=== PATIENT | female | born 1980 | race Caucasian/White ===

== ENCOUNTER 2019-01-07 10:00 | Emergency (ER) | payer MEDICARE, MEDICAID ==
[~2019-01-07] VITALS: Ht 175.3 cm; Wt 61.2 kg
[2019-01-07] MEDS ORDERED: NS IV 1000 ML 1,000 ML IV ONE (10:05)
[2019-01-07 10:48] LABS: BASOPHILS # (AUTO) 0.1 10^3/uL (0.0-0.1); BASOPHILS % (AUTO) 1 % (0-10); EOSINOPHILS # (AUTO) 0.2 10^3/uL (0.0-0.3); EOSINOPHILS % (AUTO) 3 % (0-10); HEMATOCRIT 38 % (35-52); HEMOGLOBIN 12.5 G/DL (11.5-16.0); LYMPHOCYTES % (AUTO) 26 % (12-44); MEAN CORPUSCULAR HEMOGLOBIN 29 PG (25-34); MEAN CORPUSCULAR HGB CONC 33 G/DL (32-36); MEAN CORPUSCULAR VOLUME 89 FL (80-99); MEAN PLATELET VOLUME 9.8 FL (7.4-10.4); MONOCYTES # (AUTO) 0.9 X 10^3 (0.0-1.0); MONOCYTES % (AUTO) 12 % (0-12); NEUTROPHILS # (AUTO) 4.5 X 10^3 (1.8-7.8); NEUTROPHILS % (AUTO) 59 % (42-75); PLATELET COUNT 315 10^3/uL (130-400); WHITE BLOOD COUNT 7.7 10^3/uL (4.3-11.0)
[2019-01-07 11:15] LABS: ALANINE AMINOTRANSFERASE 21 U/L (0-55); ALBUMIN 4.1 GM/DL (3.2-4.5); ALKALINE PHOSPHATASE 62 U/L (40-136); BILIRUBIN,TOTAL 0.4 MG/DL (0.1-1.0); BUN/CREATININE RATIO 23; CALCIUM 9.5 MG/DL (8.5-10.1); CARBON DIOXIDE 24 MMOL/L (21-32); CHLORIDE 101 MMOL/L (98-107); CREATININE SERUM 0.91 MG/DL (0.60-1.30); GFR ESTIMATED > 60; GLUCOSE 78 MG/DL (70-105); POTASSIUM 3.7 MMOL/L (3.6-5.0); SALICYLATE < 5.0 MG/DL (5.0-20.0); SODIUM 136 MMOL/L (135-145); TOTAL PROTEIN 6.9 GM/DL (6.4-8.2)
[2019-01-07 11:31] LABS: BILIRUBIN,URINE NEGATIVE (NEGATIVE); CLARITY,URINE SLIGHTLY CLOUDY; COLOR,URINE YELLOW; GLUCOSE, URINE (UA) NEGATIVE (NEGATIVE); KETONES,URINE 1+ (NEGATIVE); LEUKOCYTE ESTERASE ,URINE 1+ (NEGATIVE); NITRITE,URINE NEGATIVE (NEGATIVE); PH,URINE 6 (5-9); PROTEIN,URINE 1+ (NEGATIVE); UROBILINOGEN,URINE NORMAL (NORMAL)
[2019-01-07 11:32] LABS: ACETAMINOPHEN < 10 UG/ML (10-30)
[2019-01-07 11:37] LABS: HCG,QUALITATIVE URINE NEGATIVE (NEGATIVE)
--- NOTE | 2019-01-07 11:42 | ED General ---
General Chief Complaint: Psych/Social Disorder Stated Complaint: DRUG ABUSE Source of Information: Patient Exam Limitations: Other (psychosis) (NAVIN RIOJAS MEDICAL STUDENT) History of Present Illness Date Seen by Provider: Jan 07, 2019 Time Seen by Provider: 11:00 Initial Comments Pt presents to the ED by EMS c/o chest tightness, pain in her uterus, and dehydration. Pt is schizophrenic and reports being treated with Abilify but states she ran out of the medication. Poor historian due to psychosis. Timing/Duration: 1-3 Hours Severity: Mild (NAVIN RIOJAS MEDICAL STUDENT) Initial Comments Patient here by EMS with report of dehydration. Apparently she was walking to [place] per her history although story is challenging to follow. 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 She also reports that she has to finish working on her doctor degree. She appears to be listening to others during a conversation. Initially resistant to evaluation but then allowed for it. Denies suicidality or homicidality. Does admit to using methamphetamine Timing/Duration: 1-3 Hours Severity: Mild, Moderate Associated Systoms: No Fever/Chills, No Nausea/Vomiting, No Shortness of Air (WAYNE DESOUZA MD) Allergies and Home Medications Allergies Coded Allergies: No Allergy Information Available (Unverified , 01/07/19) Patient Home Medication List Home Medication List Reviewed: Yes (NAVIN RIOJAS MEDICAL STUDENT) Home Medication List Reviewed: Yes (WAYNE DESOUZA MD) Review of Systems Review of Systems Constitutional: no symptoms reported EENTM: no symptoms reported Respiratory: no symptoms reported Cardiovascular: other (chest tightness) Gastrointestinal: no symptoms reported Genitourinary: other (uterus pain) Musculoskeletal: no symptoms reported Skin: no symptoms reported Psychiatric/Neurological: Other (schizophrenia) Hematologic/Lymphatic: No Symptoms Reported Immunological/Allergic: no symptoms reported (NAVIN RIOJAS MEDICAL STUDENT) All Other Systems Reviewed Negative Unless Noted: Yes (WAYNE DESOUZA MD) Past Ptigvzo-Vjlvgp-Uewthb Hx Past Med/Social Hx: Reviewed Nursing Past Med/Soc Hx (WAYNE DESOUZA MD) Past Medical History Schizophrenia (NAVIN RIOJAS MEDICAL STUDENT) Family Medical History Reviewed Nursing Family Hx (WAYNE DESOUZA MD) Physical Exam Vital Signs Vital Signs - First Documented 01/07/19 10:02 Temp 98.0 Pulse 96 Resp 17 B/P (MAP) 128/90 (103) Pulse Ox 100 O2 Delivery Room Air (WAYNE DESOUZA MD) Vital Signs Capillary Refill : (NAVIN RIOJAS MEDICAL STUDENT) Height, Weight, BMI Height: '" Weight: lbs. oz. kg; BMI Method: General Appearance: No Apparent Distress, WD/WN HEENT: PERRL/EOMI, Pharynx Normal Neck: Full Range of Motion, Normal Inspection Respiratory: Chest Non Tender, Lungs Clear Cardiovascular: Regular Rate, Rhythm, No Murmur, Normal Peripheral Pulses Gastrointestinal: Normal Bowel Sounds, Soft Back: Normal Inspection, No Vertebral Tenderness Extremity: Non Tender, No Pedal Edema Neurologic/Psychiatric: Alert, Other (psychosis) Skin: Normal Color, Warm/Dry (NAVIN RIOJAS MEDICAL STUDENT) General Appearance: No Apparent Distress, WD/WN HEENT: PERRL/EOMI, Pharynx Normal Neck: Full Range of Motion, Normal Inspection Respiratory: Chest Non Tender, Lungs Clear Cardiovascular: Regular Rate, Rhythm, No Murmur Gastrointestinal: Normal Bowel Sounds, Soft Back: Normal Inspection, No Vertebral Tenderness Extremity: Normal Range of Motion, Non Tender, No Pedal Edema Neurologic/Psychiatric: Alert, Other (does have pressured speech and flight of ideas. Does appear to stare off intermittently as if she is listing to another conversation. Patient initially did not receptive to exam but then allowed for exam but did have concerns about not wanting her uterus touched.) Skin: Normal Color, Warm/Dry (WAYNE DESOUZA MD) Progress/Results/Core Measures Suspected Sepsis SIRS Temperature: Pulse: Respiratory Rate: Laboratory Tests 01/07/19 10:35: White Blood Count 7.7 Blood Pressure / Mean: Laboratory Tests 01/07/19 10:35: Creatinine 0.91, Platelet Count 315, Total Bilirubin 0.4 (NAVIN RIOJAS MEDICAL STUDENT) Results/Orders Lab Results Laboratory Tests Test 01/07/19 10:35 01/07/19 11:23 Range/Units White Blood Count 7.7 4.3-11.0 10^3/uL Red Blood Count 4.28 L 4.35-5.85 10^6/uL Hemoglobin 12.5 11.5-16.0 G/DL Hematocrit 38 35-52 % Mean Corpuscular Volume 89 80-99 FL Mean Corpuscular Hemoglobin 29 25-34 PG Mean Corpuscular Hemoglobin Concent 33 32-36 G/DL Red Cell Distribution Width 13.0 10.0-14.5 % Platelet Count 315 130-400 10^3/uL Mean Platelet Volume 9.8 7.4-10.4 FL Neutrophils (%) (Auto) 59 42-75 % Lymphocytes (%) (Auto) 26 12-44 % Monocytes (%) (Auto) 12 0-12 % Eosinophils (%) (Auto) 3 0-10 % Basophils (%) (Auto) 1 0-10 % Neutrophils # (Auto) 4.5 1.8-7.8 X 10^3 Lymphocytes # (Auto) 2.0 1.0-4.0 X 10^3 Monocytes # (Auto) 0.9 0.0-1.0 X 10^3 Eosinophils # (Auto) 0.2 0.0-0.3 10^3/uL Basophils # (Auto) 0.1 0.0-0.1 10^3/uL Sodium Level 136 135-145 MMOL/L Potassium Level 3.7 3.6-5.0 MMOL/L Chloride Level 101 98-107 MMOL/L Carbon Dioxide Level 24 21-32 MMOL/L Anion Gap 11 5-14 MMOL/L Blood Urea Nitrogen 21 H 7-18 MG/DL Creatinine 0.91 0.60-1.30 MG/DL Estimat Glomerular Filtration Rate > 60 BUN/Creatinine Ratio 23 Glucose Level 78 70-105 MG/DL Calcium Level 9.5 8.5-10.1 MG/DL Corrected Calcium 9.4 8.5-10.1 MG/DL Total Bilirubin 0.4 0.1-1.0 MG/DL Aspartate Amino Transf (AST/SGOT) 15 5-34 U/L Alanine Aminotransferase (ALT/SGPT) 21 0-55 U/L Alkaline Phosphatase 62 40-136 U/L Total Protein 6.9 6.4-8.2 GM/DL Albumin 4.1 3.2-4.5 GM/DL TSH [place] Testing 2.44 0.35-4.94 UIU/ML Salicylates Level < 5.0 L 5.0-20.0 MG/DL Acetaminophen Level < 10 L 10-30 UG/ML Serum Alcohol < 10 <10 MG/DL Urine Color YELLOW Urine Clarity SLIGHTLY CLOUDY Urine pH 6 5-9 Urine Specific Loyal 1.025 H 1.016-1.022 Urine Protein 1+ H NEGATIVE Urine Glucose (UA) NEGATIVE NEGATIVE Urine Ketones 1+ H NEGATIVE Urine Nitrite NEGATIVE NEGATIVE Urine Bilirubin NEGATIVE NEGATIVE Urine Urobilinogen NORMAL NORMAL MG/DL Urine Leukocyte Esterase 1+ H NEGATIVE Urine RBC (Auto) NEGATIVE NEGATIVE Urine RBC RARE /HPF Urine WBC 10-25 H /HPF Urine Squamous Epithelial Cells 10-25 H /HPF Urine Crystals NONE /LPF Urine Bacteria MODERATE H /HPF Urine Casts NONE /LPF Urine Mucus LARGE H /LPF Urine Culture Indicated YES Urine Test NEGATIVE NEGATIVE Urine Opiates Screen NEGATIVE NEGATIVE Urine Oxycodone Screen NEGATIVE NEGATIVE Urine Methadone Screen NEGATIVE NEGATIVE Urine Propoxyphene Screen NEGATIVE NEGATIVE Urine Barbiturates Screen NEGATIVE NEGATIVE Ur Tricyclic Antidepressants Screen NEGATIVE NEGATIVE Urine Phencyclidine Screen NEGATIVE NEGATIVE Urine Amphetamines Screen POSITIVE H NEGATIVE Urine Methamphetamines Screen POSITIVE H NEGATIVE Urine Benzodiazepines Screen NEGATIVE NEGATIVE Urine Cocaine Screen NEGATIVE NEGATIVE Urine Cannabinoids Screen NEGATIVE NEGATIVE (WAYNE DESOUZA MD) My Orders Orders - WAYNE DESOUZA MD Ua Culture If Indicated (01/07/19 10:05) Cbc With Automated Diff (01/07/19 10:05) Comprehensive Metabolic Panel (01/07/19 10:05) Alcohol (01/07/19 10:05) Drug Screen Stat (Urine) (01/07/19 10:05) Acetaminophen (01/07/19 10:05) Salicylate (01/07/19 10:05) Ekg Tracing (01/07/19 10:05) Hcg,Qualitative Urine (01/07/19 10:05) Ed Iv/Invasive Line Start (01/07/19 10:05) Thyroid Analyzer (01/07/19 10:05) Monitor-Rhythm Ecg Trace Only (01/07/19 10:05) Bh Status Checks/Observation Q15M (01/07/19 10:05) Ed Iv/Invasive Line Start (01/07/19 10:05) Ns Iv 1000 Ml (Sodium Chloride 0.9%) (01/07/19 10:05) Urine Culture (01/07/19 11:23) General/Regular (01/07/19 Lunch) Olanzapine Orally Dissolve Tab (Zyprexa (01/07/19 14:45) (WAYNE DESOUZA MD) Medications Given in ED Current Medications Medications Dose Ordered Sig/Akira Route Start Time Stop Time Status Last Admin Dose Admin Olanzapine 5 mg ONCE ONCE PO 01/07/19 14:45 01/07/19 14:46 DC 01/07/19 15:00 5 MG Sodium Chloride 1,000 ml @ 0 mls/hr Q0M ONCE IV 01/07/19 10:05 01/07/19 10:07 DC 01/07/19 10:37 1,000 MLS/HR (WAYNE DESOUZA MD) Vital Signs/I&O 01/07/19 10:02 Temp 98.0 Pulse 96 Resp 17 B/P (MAP) 128/90 (103) Pulse Ox 100 O2 Delivery Room Air (WAYNE DESOUZA MD) Vital Signs/I&O Capillary Refill : (NAVIN RIOJAS MEDICAL STUDENT) Progress Note : Progress Note I have seen and evaluated the patient and agree with above except as indicated. I directed the plan of care. IV, labs, EKG, UA and UDS ordered. Normal saline 1 L bolus ordered. Ultimately Zyprexa 5 mg by mouth ordered which she accepted. Question mild dehydration which has been addressed. She did tolerate lunch meal. Patient is talking about and to people/things that are not there. She is exhibiting bizarre behavior. She is stacking and organizing her things and then actually laid in the bed with a stack of her items holding it up. She held the spells for quite some time before returning to talking to someone or something that was not there. Does appear to be having acute psychosis. We will attempt to find inpatient placement as I do believe this would best address her current condition of psychosis and may be related to schizophrenia by history. She is apparently on Abilify but I am unsure she is actually taking it currently. Monitor patient. 1620: I did speak with Dr. Gonzalez at [facility]. Patient apparently was just discharged from their facility 2 days ago. She does appear to have continued or worsening psychosis. After conversation, patient has been accepted at their facility. We will arrange transfer. 1640: Patient does not want to go to [place] and actually states that she is okay. She is not exhibiting suicidal or homicidal ideations. She does have some resources to care for herself and she states that she wants to leave. Do not have enough for involuntary admission or transfer at this point. I did encourage her to except the [facility] admission for which she declined. She states that she would like to leave and has a friend at the [facility] and she would like to just walk there. At this point patient will be discharged with the understanding that she can return for any concerns. Discharge with return precautions. Patient verbalize understanding instructions and agreement with plan. (WAYNE DESOUZA MD) ECG Initial ECG Impression Date: Jan 07, 2019 Initial ECG Impression Time: 12:22 Initial ECG Rate: 78 Initial ECG Rhythm: Normal Sinus Comment Sinus rhythm with normal axis. No evidence of ST elevation [place]. No previous available for comparison. Interpreted by me. (WAYNE DESOUZA MD) Departure Impression Primary Impression: Schizophrenia Qualified Codes: F20.9 - Schizophrenia, unspecified Additional Impression: Psychosis Qualified Codes: F20.9 - Schizophrenia, unspecified Disposition: 01 HOME, SELF-CARE Condition: Stable Departure-Patient Inst. Decision time for Depature: 16:42 (WAYNE DESOUZA MD) Patient Instructions: Schizophrenia (DC) Add. Discharge Instructions: All discharge instructions reviewed with patient and/or family. Voiced understanding. Take your medicines as previously prescribed. Follow-up with mental health for recheck and further evaluation. Return for other concerns as needed. NAVIN RIOJAS MEDICAL STUDENT Jan 07, 2019 11:42 WAYNE DESOUZA MD Jan 07, 2019 15:56
[2019-01-07 11:56] LABS: BACTERIA,URINE MODERATE /HPF; RBC,URINE RARE /HPF
[2019-01-07 11:59] LABS: AMPHETAMINE SCREEN, URINE POSITIVE (NEGATIVE); BARBITURATE SCREEN URINE NEGATIVE (NEGATIVE); BENZODIAZEPINES SCREEN URINE NEGATIVE (NEGATIVE); CANNABINOID SCREEN, URINE NEGATIVE (NEGATIVE); COCAINE SCREEN URINE NEGATIVE (NEGATIVE); METHADONE STAT NEGATIVE (NEGATIVE); METHAMPHETAMINE SCREEN URINE S POSITIVE (NEGATIVE); OPIATE SCREEN URINE NEGATIVE (NEGATIVE); OXYCODONE STAT NEGATIVE (NEGATIVE); PROPOXYPHENE STAT NEGATIVE (NEGATIVE); TRICYCLIC ANTIDEPRESSANTS SCRE NEGATIVE (NEGATIVE)
[2019-01-07] MEDS ORDERED: OLANZapine 5 MG ODT (ZyPREXA ZYDIS) PO ONE (14:45)
--- NOTE | 2019-01-07 14:45 | NUR ---
CALLED [facility] TO SEE IF THEY HAVE A BED IN THE [facility] [facility] FOR PT.
[2019-01-07 16:46] VITALS: BP 117/88
== END 2019-01-07 16:46 | disposition home or self-care (01) ==
LOC: ER 10:00
DX: F20.9 Schizophrenia, unspecified (principal); Z91.14 Patient's other noncompliance with medication regimen
CPT/HCPCS: 36415; 80053; 80306; 80320; 80329; 81000; 84443; 84703; 85025; 87088; 93005